=== PATIENT | male | born 1940 | race Caucasian/White ===

== ENCOUNTER 2016-12-02 01:32 | Inpatient (IN) | payer MEDICARE, OTHER ==
[2016-12-02] MEDS ORDERED: Sodium Chloride 0.9% 2.5 ML Syringe FLUSH PRN (01:41)
[2016-12-02] MEDS ORDERED: Sodium Chloride 0.9% 10 ML Syringe FLUSH PRN (01:41)
[2016-12-02] MEDS ORDERED: Ondansetron 4 MG/2 ML SDV IVPUSH ONE (01:41)
[2016-12-02] MEDS ORDERED: Pantoprazole 40 MG Vial IVPUSH ONE (01:41)
[2016-12-02] MEDS ORDERED: Pantoprazole 80 MG in Sodium Chloride 0.9% 100 ML IV SCH ×2 (01:45→04:00)
[2016-12-02] MEDS ORDERED: Sodium Chloride 0.9% 1,000 ML IV SCH (01:45)
--- NOTE | 2016-12-02 01:47 | EDM.PDOC ---
ED HPI GENERAL MEDICAL PROBLEM - General Chief Complaint: Gastrointestinal Problem Stated Complaint: CHEST PAIN, SHAKES, ABDOMINAL PAIN Time Seen by Provider: 12/02/16 01:40 - History of Present Illness INITIAL COMMENTS - FREE TEXT/NARRATIVE: HISTORY AND PHYSICAL: History of present illness: Patient is a 76-year-old white male with extensive past medical history including peptic ulcer disease who comes in with nausea and brown colored emesis tonight he denies melena hematochezia denies bleeding diathesis denies anticoagulant. Review of systems: As per history of present illness and below otherwise all systems reviewed and negative. Past medical history: As per history of present illness and as reviewed below otherwise noncontributory. Surgical history: As per history of present illness and as reviewed below otherwise noncontributory. Social history: No reported history of drug or alcohol abuse. Family history: As per history of present illness and as reviewed below otherwise noncontributory. Physical exam: HEENT: Atraumatic, normocephalic, pupils reactive, negative for conjunctival pallor or scleral icterus, mucous membranes moist, throat clear, neck supple, nontender, trachea midline. Lungs: Clear to auscultation, breath sounds equal bilaterally, chest nontender. Heart: S1S2, regular, negative for clicks, rubs, or JVD. Abdomen: Laparotomy scar noted Soft, protuberant, nontender. Negative for masses or hepatosplenomegaly. Negative for costovertebral tenderness. Pelvis: Stable nontender. Genitourinary: Deferred. Rectal: Deferred. Extremities: Atraumatic, negative for cords or calf pain. Neurovascular unremarkable. Neuro: Awake, alert, oriented. Cranial nerves II through XII unremarkable. Cerebellum unremarkable. Motor and sensory unremarkable throughout. Exam nonfocal. Diagnostics: CBC CMP troponin PT/INR chest x-ray EKG type and screen Therapeutics: IV O2 monitor Protonix 80 mg bolus followed by 8 mg an hour drip Impression: #1 hyperemesis #2 history of ulcer disease #3 rule out GI bleed Definitive disposition and diagnosis as appropriate pending reevaluation and review of above. chest Pain Score (Numeric/FACES): 1 - Related Data Allergies Allergy/AdvReac Type Severity Reaction Status Date / Time No Known Allergies Allergy Verified 12/02/16 01:38 Home Meds: Home Meds . [No Known Home Meds] 12/02/16 [History] ED ROS GENERAL - Review of Systems Review Of Systems: ROS reveals no pertinent complaints other than HPI. ED EXAM, GENERAL - Physical Exam Exam: See Below (Dictation) Course - Vital Signs Last Recorded V/S: Last Vital Signs Temp 36.6 C 12/02/16 01:32 Pulse 91 12/02/16 01:32 Resp 20 12/02/16 01:32 BP 182/88 H 12/02/16 01:32 Pulse Ox 98 12/02/16 02:56 - Orders/Labs/Meds Orders: Active Orders 24 hr Category Date Time Status Cardiac Monitoring [RC] . DIRECTED Care 12/02/16 01:40 Active EKG Documentation Completion [RC] STAT Care 12/02/16 01:40 Active Oxygen Therapy, ED [RC] ASDIRECTED Care 12/02/16 01:40 Active Pulse Oximetry [RC] ASDIRECTED Care 12/02/16 01:40 Active Chest 1V Frontal [CR] Stat Exams 12/02/16 01:41 Taken CULTURE BLOOD [BC] Stat Lab 12/02/16 02:07 Received CULTURE BLOOD [BC] Stat Lab 12/02/16 02:13 Received TYPE AND SCREEN [BBK] Stat Lab 12/02/16 02:07 Received UA W/MICROSCOPIC [URIN] Stat Lab 12/02/16 01:41 Uncollected Pantoprazole [ProTONIX IV] 80 mg Med 12/02/16 01:45 Active Sodium Chloride 0.9% [Normal Saline] 100 ml IV .Continuous Sodium Chloride 0.9% [Normal Saline] 1,000 ml Med 12/02/16 01:45 Active IV STAT Sodium Chloride 0.9% [Saline Flush] Med 12/02/16 01:41 Active 10 ml FLUSH ASDIRECTED PRN Sodium Chloride 0.9% [Saline Flush] Med 12/02/16 01:41 Active 2.5 ml FLUSH ASDIRECTED PRN Blood Culture x2 Reflex Set [OM.PC] Stat Oth 12/02/16 01:41 Ordered Saline Lock Insert [OM.PC] Stat Oth 12/02/16 01:40 Ordered Medication Orders Pantoprazole Sodium 80 mg/ (Sodium Chloride) 100 mls @ 10 mls/hr IV .Continuous ANITA Last Admin: 12/02/16 02:41 Dose: 10 mls/hr Sodium Chloride (Normal Saline) 1,000 mls @ 125 mls/hr IV STAT ANITA Last Admin: 12/02/16 02:13 Dose: 125 mls/hr Sodium Chloride (Saline Flush) 10 ml FLUSH ASDIRECTED PRN PRN Reason: Keep Vein Open Sodium Chloride (Saline Flush) 2.5 ml FLUSH ASDIRECTED PRN PRN Reason: Keep Vein Open Labs: Laboratory Tests 12/02/16 12/02/16 12/02/16 Range/Units 02:07 02:07 02:07 WBC 8.28 (4.0-11.0) K/uL RBC 5.46 (4.50-5.90) M/uL Hgb 17.5 H (13.0-17.0) g/dL Hct 50.5 H (38.0-50.0) % MCV 92.5 (80.0-98.0) fL MCH 32.1 H (27.0-32.0) pg MCHC 34.7 (31.0-37.0) g/dL RDW Std Deviation 48.5 (28.0-62.0) fl RDW Coeff of Clotilde 14 (11.0-15.0) % Plt Count 227 (150-400) K/uL MPV 9.10 (7.40-12.00) fL Neut % (Auto) 69.7 (48.0-80.0) % Lymph % (Auto) 20.9 (16.0-40.0) % [place] % (Auto) 9.2 (0.0-15.0) % Eos % (Auto) 0.0 (0.0-7.0) % Baso % (Auto) 0.2 (0.0-1.5) % Neut # (Auto) 5.8 H (1.4-5.7) K/uL Lymph # (Auto) 1.7 (0.6-2.4) K/uL [place] # (Auto) 0.8 (0.0-0.8) K/uL Eos # (Auto) 0.0 (0.0-0.7) K/uL Baso # (Auto) 0.0 (0.0-0.1) K/uL Nucleated RBC % 0.0 /100WBC Nucleated RBCs # 0 K/uL INR 1.10 (0.86-1.11) Sodium 135 L (136-146) mmol/L Potassium 4.1 (3.5-5.1) mmol/L Chloride 100 (98-110) mmol/L Carbon Dioxide 23 (21-31) mmol/L BUN 12 (6.0-23.0) mg/dL Creatinine 0.8 (0.6-1.5) mg/dL Est Cr Clr Drug Dosing TNP Estimated GFR (MDRD) > 60.0 ml/min Glucose 131 H (60-110) mg/dL Calcium 9.9 (8.8-10.8) mg/dL Total Bilirubin 1.7 H (0.1-1.5) mg/dL AST 25 (5-40) IU/L ALT 16 (8-54) IU/L Alkaline Phosphatase 50 (40-150) Troponin I (0.0-0.29) NG/ML Total Protein 7.6 (6.0-8.0) g/dL Albumin 4.3 (3.4-4.8) g/dL Globulin 3.3 (2.0-3.5) g/dL Albumin/Globulin Ratio 1.3 (1.3-2.8) Amylase 72 (10-90) U/L Ethyl Alcohol < 10.0 mg/dL 12/02/16 Range/Units 02:07 WBC (4.0-11.0) K/uL RBC (4.50-5.90) M/uL Hgb (13.0-17.0) g/dL Hct (38.0-50.0) % MCV (80.0-98.0) fL MCH (27.0-32.0) pg MCHC (31.0-37.0) g/dL RDW Std Deviation (28.0-62.0) fl RDW Coeff of Clotilde (11.0-15.0) % Plt Count (150-400) K/uL MPV (7.40-12.00) fL Neut % (Auto) (48.0-80.0) % Lymph % (Auto) (16.0-40.0) % [place] % (Auto) (0.0-15.0) % Eos % (Auto) (0.0-7.0) % Baso % (Auto) (0.0-1.5) % Neut # (Auto) (1.4-5.7) K/uL Lymph # (Auto) (0.6-2.4) K/uL [place] # (Auto) (0.0-0.8) K/uL Eos # (Auto) (0.0-0.7) K/uL Baso # (Auto) (0.0-0.1) K/uL Nucleated RBC % /100WBC Nucleated RBCs # K/uL INR (0.86-1.11) Sodium (136-146) mmol/L Potassium (3.5-5.1) mmol/L Chloride (98-110) mmol/L Carbon Dioxide (21-31) mmol/L BUN (6.0-23.0) mg/dL Creatinine (0.6-1.5) mg/dL Est Cr Clr Drug Dosing Estimated GFR (MDRD) ml/min Glucose (60-110) mg/dL Calcium (8.8-10.8) mg/dL Total Bilirubin (0.1-1.5) mg/dL AST (5-40) IU/L ALT (8-54) IU/L Alkaline Phosphatase (40-150) Troponin I < 0.10 (0.0-0.29) NG/ML Total Protein (6.0-8.0) g/dL Albumin (3.4-4.8) g/dL Globulin (2.0-3.5) g/dL Albumin/Globulin Ratio (1.3-2.8) Amylase (10-90) U/L Ethyl Alcohol mg/dL Meds: Medications Generic Name Dose Route Start Last Admin Trade Name Freq PRN Reason Stop Dose Admin Pantoprazole Sodium 80 mg/ 100 mls @ 10 mls/hr 12/02/16 01:45 12/02/16 02:41 Sodium Chloride IV 10 mls/hr .Continuous ANITA Administration Sodium Chloride 1,000 mls @ 125 mls/hr 12/02/16 01:45 12/02/16 02:13 Normal Saline IV 125 mls/hr STAT ANITA Administration Sodium Chloride 10 ml 12/02/16 01:41 Saline Flush FLUSH ASDIRECTED PRN Keep Vein Open Sodium Chloride 2.5 ml 12/02/16 01:41 Saline Flush FLUSH ASDIRECTED PRN Keep Vein Open Discontinued Medications Generic Name Dose Route Start Last Admin Trade Name Iggyq PRN Reason Stop Dose Admin Ondansetron HCl 4 mg 12/02/16 01:41 12/02/16 02:13 Zofran IVPUSH 12/02/16 01:42 4 mg ONETIME ONE Administration Pantoprazole Sodium 80 mg 12/02/16 01:41 12/02/16 02:13 Protonix Iv IVPUSH 12/02/16 01:42 80 mg .BOLUS ONE Administration Departure - Departure Time of Disposition: 01:46 Disposition: Refer to Observation Condition: Good Clinical Impression: Hyperemesis, GI bleed - Discharge Information Referrals: PCP,None [Primary Care Provider] - Forms: ED Department Discharge - My Orders Last 24 Hours: My Active Orders 12/02/16 01:40 Cardiac Monitoring [RC] . DIRECTED EKG Documentation Completion [RC] STAT Oxygen Therapy, ED [RC] ASDIRECTED Pulse Oximetry [RC] ASDIRECTED Saline Lock Insert [OM.PC] Stat 12/02/16 01:41 Chest 1V Frontal [CR] Stat UA W/MICROSCOPIC [URIN] Stat Sodium Chloride 0.9% [Saline Flush] 10 ml FLUSH ASDIRECTED PRN Sodium Chloride 0.9% [Saline Flush] 2.5 ml FLUSH ASDIRECTED PRN Blood Culture x2 Reflex Set [OM.PC] Stat 12/02/16 01:45 Pantoprazole [ProTONIX IV] 80 mg Sodium Chloride 0.9% [Normal Saline] 100 ml IV .Continuous Sodium Chloride 0.9% [Normal Saline] 1,000 ml IV STAT 12/02/16 02:07 CULTURE BLOOD [BC] Stat TYPE AND SCREEN [BBK] Stat 12/02/16 02:13 CULTURE BLOOD [BC] Stat - Assessment/Plan Last 24 Hours: My Active Orders 12/02/16 01:40 Cardiac Monitoring [RC] . DIRECTED EKG Documentation Completion [RC] STAT Oxygen Therapy, ED [RC] ASDIRECTED Pulse Oximetry [RC] ASDIRECTED Saline Lock Insert [OM.PC] Stat 12/02/16 01:41 Chest 1V Frontal [CR] Stat UA W/MICROSCOPIC [URIN] Stat Sodium Chloride 0.9% [Saline Flush] 10 ml FLUSH ASDIRECTED PRN Sodium Chloride 0.9% [Saline Flush] 2.5 ml FLUSH ASDIRECTED PRN Blood Culture x2 Reflex Set [OM.PC] Stat 12/02/16 01:45 Pantoprazole [ProTONIX IV] 80 mg Sodium Chloride 0.9% [Normal Saline] 100 ml IV .Continuous Sodium Chloride 0.9% [Normal Saline] 1,000 ml IV STAT 12/02/16 02:07 CULTURE BLOOD [BC] Stat TYPE AND SCREEN [BBK] Stat 12/02/16 02:13 CULTURE BLOOD [BC] Stat
[2016-12-02 02:36] LABS: CHLORIDE,CL 100 mmol/L (98-110); SODIUM,NA 135 mmol/L (136-146)
[2016-12-02] MEDS ORDERED: Morphine 4 MG/ML Syringe IVPUSH PRN (03:47)
[2016-12-02 05:57] LABS: CHLORIDE,CL 101 mmol/L (98-110); SODIUM,NA 135 mmol/L (136-146)
[2016-12-02] MEDS: Ondansetron 4 MG/2 ML SDV IVPUSH PRN ×3 (06:10→14:06)
[2016-12-02] MEDS: Sodium Chloride 0.9% 1,000 ML IV SCH ×3 (09:26→23:53)
--- NOTE | 2016-12-02 12:22 | PCM.HP ---
H&P History of Present Illness - General Date of Service: 12/02/16 Admit Problem/Dx: Admission Diagnosis/Problem Admission Diagnosis/Problem Vomiting Source of Information: Patient, Family, Provider, RN - History of Present Illness Initial Comments - Free Text/Narative: He developed persistent vomiting the past 3 days. HE feels bloated. He states that he has not had a BM x three days. He has had small amounts of flatus up until today. chest Pain Score (Numeric/FACES): 5 - Related Data Allergies/Adverse Reactions: Allergies Allergy/AdvReac Type Severity Reaction Status Date / Time No Known Allergies Allergy Verified 12/02/16 01:38 Home Medications: Home Meds . [No Known Home Meds] 12/02/16 [History] Past Medical History - Past Health History Medical/Surgical History: Denies Medical/Surgical History Cardiovascular History: Denies: Afib, Angina, Bypass, CAD, Heart Failure, High Cholesterol, RI Respiratory History: Denies: COPD, Interstitial Lung Disease Gastrointestinal History: Reports: GI Bleed, PUD Other Genitourinary History: history of prostate cancer Neurological History: Denies: Alzheimers Disease, Brain Injury, CVA, MS Psychiatric History: Denies: Alzheimers Disease, Dementia Endocrine/Metabolic History: Denies: Gustavo's Disease, Diabetes, Type I, Diabetes, Type II Immunologic History: Denies: HIV, Solid Organ Transplant Oncologic (Cancer) History: Reports: Prostate, Renal Other Oncologic History: Prostate cancer non-treated - Infectious Disease History Infectious Disease History: Reports: Chicken Pox - Past Surgical History GI Surgical History: Reports: Other (See Below) Other GI Surgeries/Procedures: explor lap Other Oncologic Surgeries/Procedures: Partial removal of kidney Social & Family History - Family History Family Medical History: Noncontributory Cardiac: Reports: RI, Other (See Below) Other Cardiac Family History: Father from heart attack. - Tobacco Use Smoking Status *Q: Former Smoker Used Tobacco, but Quit: Yes Month Tobacco Last Used: unknown Second Hand Smoke Exposure: No - Caffeine Use Caffeine Use: Reports: Coffee - Alcohol Use Number of Drinks Per Day: 4 Alcohol Use Comment: he drinks 4 beers per day. - Recreational Drug Use Recreational Drug Use: No H&P Review of Systems - Review of Systems: Review Of Systems: See Below General: Denies: Fever, Chills Pulmonary: Denies: Shortness of Breath, Cough, Sputum Cardiovascular: Denies: Chest Pain, Edema Gastrointestinal: Reports: Abdominal Pain (minimal left sided pain), Flatus, Vomiting (brown emesis). Denies: Black Stool, Bloody Stool, Diarrhea, Hematemesis, Hematochezia, Melena, Stool Incontinence Genitourinary: Denies: Dysuria, Burning Skin: Denies: Jaundice Neurological: Denies: Confusion (he has a large left inguinal hernia) Exam - Exam Exam: See Below - Vital Signs Vital Signs: Last Vital Signs Temp 98.8 F 12/02/16 08:00 Pulse 85 12/02/16 08:00 Resp 20 12/02/16 08:00 BP 182/88 H 12/02/16 08:00 Pulse Ox 94 L 12/02/16 08:00 Weight: 65.7 kg - Exam General: Alert, Oriented, Cooperative HEENT: Conjunctiva Clear, EOMI Neck: Supple, Trachea Midline Lungs: Clear to Auscultation, Normal Respiratory Effort. No: Crackles, Rhonchi Cardiovascular: Regular Rate, Regular Rhythm GI/Abdominal Exam: Distended, Other (no definite focal tenderness; high pitched bowel sounds). No: No Distention, Rebound, Tender (Male) Exam: Other (large left inguinal hernia extending to the scrotum ; no incarcerated; not tenderness) Rectal (Males) Exam: Deferred Extremities: No: Pedal Edema Neurological: Normal Speech. No: Cranial Nerves Intact Neuro Extensive - Mental Status: Normal Mood/Affect Neuro Extensive - Motor, Sensory, Reflexes: CN II-XII Intact Psychiatric: Alert, Normal Mood. No: Depressed - Patient Data Lab Results Last 24 hrs: Laboratory Results - last 24 hr 12/02/16 12/02/16 Range/Units 05:20 05:20 WBC 9.06 (4.0-11.0) K/uL RBC 5.18 (4.50-5.90) M/uL Hgb 16.5 (13.0-17.0) g/dL Hct 48.1 (38.0-50.0) % MCV 92.9 (80.0-98.0) fL MCH 31.9 (27.0-32.0) pg MCHC 34.3 (31.0-37.0) g/dL RDW Std Deviation 48.5 (28.0-62.0) fl RDW Coeff of Clotilde 14 (11.0-15.0) % Plt Count 230 (150-400) K/uL MPV 9.20 (7.40-12.00) fL Neut % (Auto) 77.8 (48.0-80.0) % Lymph % (Auto) 14.2 L (16.0-40.0) % [place] % (Auto) 7.9 (0.0-15.0) % Eos % (Auto) 0.0 (0.0-7.0) % Baso % (Auto) 0.1 (0.0-1.5) % Neut # (Auto) 7.0 H (1.4-5.7) K/uL Lymph # (Auto) 1.3 (0.6-2.4) K/uL [place] # (Auto) 0.7 (0.0-0.8) K/uL Eos # (Auto) 0.0 (0.0-0.7) K/uL Baso # (Auto) 0.0 (0.0-0.1) K/uL Nucleated RBC % 0.0 /100WBC Nucleated RBCs # 0 K/uL Sodium 135 L (136-146) mmol/L Potassium 4.3 (3.5-5.1) mmol/L Chloride 101 (98-110) mmol/L Carbon Dioxide 25 (21-31) mmol/L BUN 12 (6.0-23.0) mg/dL Creatinine 0.8 (0.6-1.5) mg/dL Est Cr Clr Drug Dosing 73.00 mL/min Estimated GFR (MDRD) > 60.0 ml/min Glucose 121 H (60-110) mg/dL Calcium 9.4 (8.8-10.8) mg/dL Result Diagrams: 12/02/16 05:20 12/02/16 05:20 *Q Meaningful Use (ADM) - VTE *Q VTE Criteria *Q: - Stroke *Q Stroke Criteria *Q: - AMI *Q AMI Criteria *Q: - Problem List (1) Abdominal distention SNOMED Code(s): 76521503 ICD Code: R14.0 - ABDOMINAL DISTENSION (GASEOUS) Status: Acute Current Visit: Yes (2) History of kidney cancer SNOMED Code(s): 378690537, 282351224 ICD Code: Z85.528 - PERSONAL HISTORY OF OTHER MALIGNANT NEOPLASM OF KIDNEY Status: Acute Current Visit: Yes Problem List Initiated/Reviewed/Updated: Yes Orders Last 24hrs: Active Orders 24 hr Category Date Time Status Telemetry Monitoring [Cardiac Monitoring] [RC] . Care 12/02/16 03:30 Active DIRECTED Regular Diet [DIET] Diet 12/02/16 Breakfast Active Morphine Med 12/02/16 03:47 Active 4 mg IVPUSH Q2H PRN Ondansetron [Zofran] Med 12/02/16 03:47 Active 4 mg IVPUSH Q4H PRN Pantoprazole [ProTONIX IV] 80 mg Med 12/02/16 12:30 Active Sodium Chloride 0.9% [Normal Saline] 100 ml IV Q10H Sodium Chloride 0.9% [Normal Saline] 1,000 ml Med 12/02/16 04:00 Active IV ASDIRECTED Medication Orders Sodium Chloride (Normal Saline) 1,000 mls @ 125 mls/hr IV STAT ANITA Last Admin: 12/02/16 02:13 Dose: 125 mls/hr Sodium Chloride (Normal Saline) 1,000 mls @ 150 mls/hr IV ASDIRECTED ANITA Last Admin: 12/02/16 09:26 Dose: 150 mls/hr Pantoprazole Sodium 80 mg/ (Sodium Chloride) 100 mls @ 10 mls/hr IV Q10H ANITA Morphine Sulfate (Morphine) 4 mg IVPUSH Q2H PRN PRN Reason: Pain Last Admin: 12/02/16 05:50 Dose: 4 mg Ondansetron HCl (Zofran) 4 mg IVPUSH Q4H PRN PRN Reason: Nausea/Vomiting Last Admin: 12/02/16 09:41 Dose: 4 mg Admin: 12/02/16 06:10 Dose: 4 mg Sodium Chloride (Saline Flush) 10 ml FLUSH ASDIRECTED PRN PRN Reason: Keep Vein Open Sodium Chloride (Saline Flush) 2.5 ml FLUSH ASDIRECTED PRN PRN Reason: Keep Vein Open Assessment/Plan Comment:: ct abdomen pelvis suspect bowel obstruction Clayton Blandon MD
[2016-12-02] MEDS: Pantoprazole 80 MG in Sodium Chloride 0.9% 100 ML IV SCH (13:55)
[2016-12-02] MEDS ORDERED: Iopamidol 755 Mg/ML 100 ML Bottle IVPUSH STA (15:40)
--- NOTE | 2016-12-02 16:46 | PCM.SN ---
- Free Text/Narrative Note: I reviewed CT with patient and family. He is feeling better and starting to pass flatus. His abdomen now is soft. Will not place NG tube as planned. Will advance to clear liquid diet. Clayton Blandon MD
[2016-12-02] MEDS ORDERED: Ondansetron 4 MG/2 ML SDV IVPUSH PRN (21:41)
[2016-12-02] MEDS: Enalaprilat 1.25 MG/ML SDV IVPUSH SCH (21:42)
[2016-12-03] MEDS: Pantoprazole 80 MG in Sodium Chloride 0.9% 100 ML IV SCH ×3 (00:36→20:06)
[2016-12-03] MEDS: Enalaprilat 1.25 MG/ML SDV IVPUSH SCH ×3 (02:45→14:25)
[2016-12-03 06:33] LABS: CHLORIDE,CL 103 mmol/L (98-110); SODIUM,NA 135 mmol/L (136-146)
[2016-12-03] MEDS: Sodium Chloride 0.9% 1,000 ML IV SCH (08:05)
[2016-12-03 17:29] VITALS: BP 138/67
--- NOTE | 2016-12-03 19:33 | PCM.DCSUM1 ---
Discharge Summary - Hospital Course Brief History: He was admitted with recalcitrant emesis - Discharge Data Discharge Date: 12/03/16 Discharge Disposition: Home, Self-Care 01 Condition: Fair - Discharge Diagnosis/Problem(s) (1) Abdominal distention SNOMED Code(s): 16748432 ICD Code: R14.0 - ABDOMINAL DISTENSION (GASEOUS) Status: Acute Current Visit: Yes (2) History of kidney cancer SNOMED Code(s): 733575010, 544853168 ICD Code: Z85.528 - PERSONAL HISTORY OF OTHER MALIGNANT NEOPLASM OF KIDNEY Status: Acute Current Visit: Yes - Patient Summary/Data Hospital Course: He was initially put on bowel rest. CT scan showed decompressed colon. He had marked abdominal distention. It was thought that he likely had a partial small bowel obstruction related to adhesions. he was given bowel rest and when he started passing significant flatus with subsequent decrease in abdominal distention, he was given clear liquids. His diet was advanced and he is tolerating regular diet at discharge. His abdominal symptoms have completely resolved at discharge. IMpression: partial small bowel obstruction ; symptoms resolved with bowel rest discharge home I advised small meals and follow up promptly should symptoms recur. Clayton Blandon MD - Discharge Plan Home Medications: Home Meds . [No Known Home Meds] 12/02/16 [History] Patient Handouts: Small Bowel Obstruction, [id number] Referrals: Vega Wilks MD [Physician] - (Please call the clinic ([phone]) on Sunday to set up a follow-up appointment with Dr. Wilks.) - Patient Data Vitals - Most Recent: Last Vital Signs Temp 97.9 F 12/03/16 16:00 Pulse 60 12/03/16 16:00 Resp 14 12/03/16 16:00 BP 138/67 12/03/16 16:00 Pulse Ox 94 L 12/03/16 16:00 Weight - Most Recent: 65.7 kg I&O - Last 24 hours: Intake & Output 12/03/16 12/03/16 12/03/16 06:59 14:59 22:59 Intake Total 1370 1100 540 Output Total 880 400 Balance 490 1100 140 Lab Results - Last 24 hrs: Laboratory Results - last 24 hr 12/03/16 12/03/16 Range/Units 04:58 04:58 WBC 7.72 (4.0-11.0) K/uL RBC 4.72 (4.50-5.90) M/uL Hgb 15.1 (13.0-17.0) g/dL Hct 44.2 (38.0-50.0) % MCV 93.6 (80.0-98.0) fL MCH 32.0 (27.0-32.0) pg MCHC 34.2 (31.0-37.0) g/dL RDW Std Deviation 49.7 (28.0-62.0) fl RDW Coeff of Clotilde 14 (11.0-15.0) % Plt Count 229 (150-400) K/uL MPV 9.30 (7.40-12.00) fL Neut % (Auto) 64.6 (48.0-80.0) % Lymph % (Auto) 23.8 (16.0-40.0) % [place] % (Auto) 10.9 (0.0-15.0) % Eos % (Auto) 0.4 (0.0-7.0) % Baso % (Auto) 0.3 (0.0-1.5) % Neut # (Auto) 5.0 (1.4-5.7) K/uL Lymph # (Auto) 1.8 (0.6-2.4) K/uL [place] # (Auto) 0.8 (0.0-0.8) K/uL Eos # (Auto) 0.0 (0.0-0.7) K/uL Baso # (Auto) 0.0 (0.0-0.1) K/uL Nucleated RBC % 0.0 /100WBC Nucleated RBCs # 0 K/uL Sodium 135 L (136-146) mmol/L Potassium 3.4 L (3.5-5.1) mmol/L Chloride 103 (98-110) mmol/L Carbon Dioxide 23 (21-31) mmol/L BUN 11 (6.0-23.0) mg/dL Creatinine 0.7 (0.6-1.5) mg/dL Est Cr Clr Drug Dosing 83.43 mL/min Estimated GFR (MDRD) > 60.0 ml/min Glucose 86 (60-110) mg/dL Calcium 8.7 L (8.8-10.8) mg/dL Magnesium 1.4 L (1.5-2.3) mEq/L Total Bilirubin 1.9 H (0.1-1.5) mg/dL AST 20 (5-40) IU/L ALT 14 (8-54) IU/L Alkaline Phosphatase 38 L (40-150) Total Protein 5.9 L (6.0-8.0) g/dL Albumin 3.5 (3.4-4.8) g/dL Globulin 2.4 (2.0-3.5) g/dL Albumin/Globulin Ratio 1.5 (1.3-2.8) Amylase 61 (10-90) U/L Lipase 26 (7-80) U/L Med Orders - Current: Current Medications Enalaprilat (Vasotec Iv) 0.625 mg IVPUSH Q6H [facility] Last Admin: 12/03/16 14:25 Dose: 0.625 mg Sodium Chloride (Normal Saline) 1,000 mls @ 125 mls/hr IV ASDIRECTED ANITA Last Admin: 12/03/16 08:05 Dose: 125 mls/hr Pantoprazole Sodium 80 mg/ (Sodium Chloride) 100 mls @ 10 mls/hr IV Q10H ANITA Last Admin: 12/03/16 08:10 Dose: 10 mls/hr Morphine Sulfate (Morphine) 4 mg IVPUSH Q2H PRN PRN Reason: Pain Last Admin: 12/02/16 05:50 Dose: 4 mg Ondansetron HCl (Zofran) 4 mg IVPUSH Q4H PRN PRN Reason: Nausea/Vomiting Sodium Chloride (Saline Flush) 10 ml FLUSH ASDIRECTED PRN PRN Reason: Keep Vein Open Sodium Chloride (Saline Flush) 2.5 ml FLUSH ASDIRECTED PRN PRN Reason: Keep Vein Open Discontinued Medications Pantoprazole Sodium 80 mg/ (Sodium Chloride) 100 mls @ 10 mls/hr IV .Continuous ANITA Last Admin: 12/02/16 02:41 Dose: 10 mls/hr Sodium Chloride (Normal Saline) 1,000 mls @ 125 mls/hr IV STAT [facility] Last Admin: 12/02/16 02:13 Dose: 125 mls/hr Pantoprazole Sodium 80 mg/ (Sodium Chloride) 100 mls @ 10 mls/hr IV Q10H ANITA Last Admin: 12/02/16 05:58 Dose: Not Given Iopamidol (Isovue-370 (76%)) 85 ml IVPUSH ONETIME STA Stop: 12/02/16 15:41 Last Admin: 12/02/16 15:40 Dose: 85 ml Ondansetron HCl (Zofran) 4 mg IVPUSH ONETIME ONE Stop: 12/02/16 01:42 Last Admin: 12/02/16 02:13 Dose: 4 mg Ondansetron HCl (Zofran) 4 mg IVPUSH Q4H PRN PRN Reason: Nausea/Vomiting Last Admin: 12/02/16 14:06 Dose: 4 mg Pantoprazole Sodium (Protonix Iv) 80 mg IVPUSH .BOLUS ONE Stop: 12/02/16 01:42 Last Admin: 12/02/16 02:13 Dose: 80 mg *Q Meaningful Use (DIS) - VTE *Q VTE Criteria *Q: - Stroke *Q Stroke Criteria *Q: - AMI *Q AMI Criteria *Q:
--- NOTE | 2016-12-04 10:31 | CR ---
EXAM DATE: 12/02/16 PATIENT'S AGE: 76 Patient: DAVID VILLAREAL Facility: [place], [place] Site . Site : [id number] Study: XRay Chest [id number]/16/2017 2:32:27 AM Ordering Physician: Katelynn Pagan Final Report: INDICATIONS: Pain. Shortness of breath. TECHNIQUE: Chest 1 view. COMPARISON: Chest radiograph December 28, 2012. FINDINGS: No pneumothorax, pleural effusion or airspace consolidation. Cardiac and mediastinal contours are within normal limits. Upper abdomen and osseous structures as imaged show no acute abnormality. IMPRESSION: No acute cardiopulmonary disease. Dictated by Artis Martinez MD @ 12/02/2016 2:46:15 AM Dictated by: Artis Martinez MD @ 12/02/2016 02:46:25 (Electronic Signature) Report Signed by Proxy. [facility]
--- NOTE | 2016-12-04 10:32 | CT ---
EXAM DATE: 12/02/16 PATIENT'S AGE: 76 Patient: DAVID VILLAREAL Facility: [place], [place] Site . Site : 1940 Study: CT Abdomen/Pelvis W/ and W/O Cont [id number]/16/2017 3:34:36 PM Ordering Physician: Jamia Arnold Final Report: INDICATION: Suspected obstruction. History of kidney and prostate cancer. Technique: Volumetric CT acquisition of the abdomen and pelvis following the administration of oral contrast and the foreign after the administration of 85 mL [id number] intravenous contrast. Multiplanar reconstruction. Comparison. Comparison: CT abdomen and pelvis on 08/09/2011. Findings: The lung bases are clear. The liver and spleen are normal in size and without focal abnormality. No dilatation of the biliary system. The gallbladder is present. Pancreas and adrenal glands are normal. Both kidneys are functioning and display normal enhancement. No hydronephrosis. No urinary tract stones. Ureters normal in course and caliber. Resection of previously noted mass arising from the lower pole of the left kidney. No new renal masses are focal parenchymal abnormalities. Abdominal aorta normal in caliber and displays changes of atherosclerosis. No para-aortic or retrocrural lymphadenopathy. Small bowel loops at the upper limit of normal in diameter. The colon is decompressed. Examination is significant for a left inguinal hernia containing loops of bowel and fat. The bowel within the hernia sac is not compromised. The hernia extends into the inguinal canal directed towards the left hemiscrotum. There are no inflammatory changes involving the bowel. The urinary bladder is mildly distended . Small diverticulum arising from the left posterior margin of the bladder is stable since prior study. Seminal vesicles bilaterally symmetrical. Fat planes surrounding the bladder and rectum are maintained. No free fluid in the abdomen and pelvis. No lytic or blastic lesions in the lumbar spine or bony pelvic ring. Impression : 1. A left inguinal hernia extends into the inguinal canal toward the left hemiscrotum. The hernia contains fat and bowel. The bowel within the hernia is not compromised. Small bowel loops proximal to the hernia at the upper limit of normal in diameter. 2. Mild distention of the urinary bladder. Stable bladder diverticulum. 3. Resection of left renal cell carcinoma. No recurrent mass. No evidence of metastatic disease. Please note that all CT scans at this facility use dose modulation, iterative reconstruction, and/or weight-based dosing when appropriate to reduce radiation dose to as low as reasonably achievable. Dictated by Irvin Arechiga MD @ Dec 02 2016 3:40PM (Electronic Signature) Report Signed by Proxy. MTDD
== END 2016-12-03 19:56 | disposition home or self-care (01) | DRG 390 ==
LOC: MW.ED 01:32 → MW.MS 03:01 → OBSVTOIN 03:01 → INTOOBSV 03:01 → OBSVTOIN 12:32 → MW.MS 19:44
PROVIDERS: ADMIT Family Medicine; ATTEND Family Medicine
DX: K92.2 Gastrointestinal hemorrhage, unspecified (principal); R11.10 Vomiting, unspecified; Z87.11 Personal history of peptic ulcer disease; K56.60 Unspecified intestinal obstruction; R14.0 Abdominal distension (gaseous); Z85.528 Personal history of other malignant neoplasm of kidney; Z87.891 Personal history of nicotine dependence
CPT/HCPCS: 36415; 71010; 80048; 80053; 82150; 84484; 85025 ×2; 85610; 86850; 86900; 86901; 87040 ×2; 93005; 96361; 96365; 96375; 96376; 99285; C9113 ×2; G0480; J2270; J2405 ×3; J7030; J7040 ×2; 74178; 74178-26; 81001; 83690; 83735; 87077; 87186; 99283; Q9967

== ENCOUNTER 2019-01-21 15:12 | Emergency (ER) | payer MEDICARE ==
[2019-01-21] MEDS ORDERED: Sodium Chloride 0.9% 2.5 ML Syringe FLUSH PRN (15:18)
[2019-01-21] MEDS ORDERED: Sodium Chloride 0.9% 10 ML Syringe FLUSH PRN (15:18)
[2019-01-21] MEDS ORDERED: Ondansetron 4 MG/2 ML SDV IVPUSH ONE ×2 (15:18→15:57)
[2019-01-21] MEDS ORDERED: Sodium Chloride 0.9% 1,000 ML IV ONE (15:18)
[2019-01-21] MEDS ORDERED: Morphine 2 MG/ML Syringe IVPUSH ONE ×2 (15:29→16:49)
[2019-01-21] MEDS ORDERED: Ondansetron 4 MG/2 ML SDV ONE (15:58)
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
--- NOTE | 2019-01-21 16:27 | CR ---
EXAM DATE: 01/21/19 PATIENT'S AGE: 78 Chest: AP view of the chest was obtained. Comparison: Prior chest x-ray of 12/02/16. Heart size and mediastinum are normal. Nodule is noted within the right lung base most likely due to nipple density. Lungs otherwise are clear. No acute parenchymal change is definitely appreciated. Bony structures are grossly intact. Old healed right lower rib fracture is noted. Impression: 1. Findings as noted above. 2. Nothing acute is definitely seen. Diagnostic code #2 MTDD
[2019-01-21 16:31] LABS: CARBON DIOXIDE,CO2 22.4 mmol/L (21.0-32.0); POTASSIUM,K 3.7 mmol/L (3.5-5.1)
--- NOTE | 2019-01-21 16:33 | CT ---
EXAM DATE: 01/21/19 PATIENT'S AGE: 78 CT abdomen and pelvis Technique: Multiple axial sections were obtained from above the dome of the diaphragm inferiorly through the pubic symphysis. Intravenous and oral contrast not utilized. Comparison: Prior CT abdomen and pelvis exam of 12/02/16. Findings: Dilated fluid-filled small bowel loops are seen. This continues into a left inguinal hernia with more distal small bowel loops appearing decompressed. Visualized lung bases show nothing acute. Noncontrast appearance of the liver shows no focal abnormality. Spleen appears within normal limits. Small hiatal hernia is noted. Adrenal glands show no nodule. Kidneys show no abnormal calcifications. No ureteral dilatation is seen. Pancreas is atrophied. Aorta shows diffuse atherosclerotic calcification without aneurysm. Atherosclerotic calcification continues into the iliac vessels. No retroperitoneal adenopathy is seen. No mesenteric abnormalities are seen. No pelvic mass or adenopathy is seen. Impression: 1. Dilated fluid-filled small bowel which extends into a left inguinal hernia with more distal small bowel loops showing no dilatation. Left inguinal hernia likely causing a small bowel obstruction. 2. Other findings as noted above which are nonacute. Diagnostic code #5 Report Signed by Proxy. [facility]
[2019-01-21] MEDS ORDERED: Benzocaine 20% Topical Spray UD MUCMEM ONE ×2 (16:47→16:50)
[2019-01-21] MEDS ORDERED: LORazepam 2 MG/ML SDV IVPUSH ONE (16:49)
[2019-01-21] MEDS ORDERED: Piperacillin/Tazobactam 3.375 GM in Sodium Chloride 0.9% 50 ML IV ONE (16:58)
[2019-01-21 17:00] VITALS: BP 136/77; PULSE 88
--- NOTE | 2019-01-21 17:38 | CR ---
Indication: Post NG tube placement. Technique: An AP view of the abdomen was obtained. Comparison: None Findings: The feeding tube is identified with the tip in the body of the stomach. The bowel gas pattern is nonobstructive. Impression: NG tube identified with the tip in the body of the stomach Dictated by Noni Marquis MD @ Jan 21 2019 5:34PM Signed by Dr. Noni Marquis @ Jan 21 2019 5:35PM
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
== END 2019-01-21 18:00 ==
LOC: MW.ED 15:12
DX: K56.609 Unspecified intestinal obstruction, unspecified as to partial versus complete obstruction (principal); K40.30 Unilateral inguinal hernia, with obstruction, without gangrene, not specified as recurrent; R14.0 Abdominal distension (gaseous); Z85.46 Personal history of malignant neoplasm of prostate; Z85.528 Personal history of other malignant neoplasm of kidney
CPT/HCPCS: 71045; 74018; 74176; 80053; 83605; 83690; 85025; 96361; 96365; 96375; 96376; 99285; A9270; J2060; J2270; J2405; J2543; J7040; J7050

== ENCOUNTER 2021-12-05 09:52 | Inpatient (IN) | payer MEDICARE ==
[2021-12-05] MEDS ORDERED: Sodium Chloride 0.9% 10 ML Syringe FLUSH PRN (10:21)
[2021-12-05] MEDS ORDERED: Sodium Chloride 0.9% 2.5 ML Syringe FLUSH PRN (10:21)
[2021-12-05] MEDS ORDERED: Sodium Chloride 0.9% 1,000 ML IV ONE (10:22)
[2021-12-05] MEDS ORDERED: Ketorolac 30 MG/ML SDV IVPUSH ONE (10:22)
[2021-12-05 11:32] LABS: BLOOD UREA NITROGEN,BUN 17 mg/dL (7.0-18.0); CARBON DIOXIDE,CO2 27.8 mmol/L (21.0-32.0); CHLORIDE,CL 99 mmol/L (98-107); GLUCOSE RANDOM 154 mg/dL (74-106); POTASSIUM,K 3.6 mmol/L (3.5-5.1); SODIUM,NA 137 mmol/L (136-148)
[2021-12-05] MEDS ORDERED: HYDROmorphone 1 MG/ML Syringe IVPUSH ONE (11:35)
[2021-12-05 11:42] LABS: ESTIMATED GFR 76 mL/min (>60)
[2021-12-05] MEDS: Sodium Chloride 0.9% 1,000 ML IV SCH ×2 (13:46→23:03)
[2021-12-05] MEDS ORDERED: Iopamidol 755 MG/ML 500 ML Multipack Bottle IVPUSH STA (15:08)
[2021-12-05] MEDS ORDERED: cefTRIAXone 1 GM in Sodium Chloride 0.9% 50 ML IV ONE (15:51)
[2021-12-05] MEDS ORDERED: Lidocaine 2% 11 ML Jelly Filled Syringe TOP ONE (16:30)
[2021-12-05] MEDS ORDERED: Acetaminophen 325 MG Tab PO PRN (17:00)
[2021-12-05] MEDS ORDERED: Albuterol/Ipratropium 3.0-0.5 MG/3 ML Neb Soln NEB PRN (17:00)
[2021-12-05] MEDS ORDERED: Ondansetron 4 MG/2 ML SDV IVPUSH PRN (17:01)
[2021-12-05] MEDS ORDERED: HYDROmorphone 2 MG/ML Syringe IVPUSH PRN (17:05)
[2021-12-05] MEDS ORDERED: Pantoprazole 40 MG Tab.CR PO SCH (17:15)
[2021-12-05] MEDS ORDERED: Polyethylene Glycol 3350 Powder 17 GM Packet PO PRN (17:51)
[2021-12-05] MEDS: Pantoprazole 40 MG Tab.CR PO SCH (21:23)
[2021-12-05] MEDS: oxyCODONE 5 MG/5 ML Cup PO SCH (23:03)
[2021-12-06] MEDS: Sodium Chloride 0.9% 1,000 ML IV SCH ×2 (05:17→12:12)
[2021-12-06] MEDS: oxyCODONE 5 MG/5 ML Cup PO SCH ×3 (05:17→21:17)
[2021-12-06 07:21] LABS: CARBON DIOXIDE,CO2 28.6 mmol/L (21.0-32.0); POTASSIUM,K 3.6 mmol/L (3.5-5.1)
[2021-12-06] MEDS: Docusate Sodium 100 MG Cap PO SCH ×2 (09:09→21:17)
[2021-12-06] MEDS ORDERED: HYDROmorphone 1 MG/ML Syringe IVPUSH PRN (10:48)
[2021-12-06] MEDS: cefTRIAXone 1 GM in Sodium Chloride 0.9% 50 ML IV SCH (15:24)
[2021-12-06] MEDS: Pantoprazole 40 MG Tab.CR PO SCH (21:17)
[2021-12-07] MEDS: oxyCODONE 5 MG/5 ML Cup PO SCH ×3 (07:28→23:00)
[2021-12-07 07:30] LABS: CARBON DIOXIDE,CO2 28.3 mmol/L (21.0-32.0); POTASSIUM,K 3.7 mmol/L (3.5-5.1)
[2021-12-07] MEDS ORDERED: hydrALAZINE 20 MG/ML SDV IVPUSH ONE (07:54)
[2021-12-07] MEDS: Docusate Sodium 100 MG Cap PO SCH ×2 (08:28→20:17)
[2021-12-07] MEDS ORDERED: HYDROmorphone 2 MG/ML Syringe IVPUSH PRN (10:47)
[2021-12-07] MEDS ORDERED: Ketorolac 30 MG/ML SDV IVPUSH PRN (10:48)
[2021-12-07] MEDS: Lidocaine 5% 700 MG Patch TRDERM SCH (11:15)
[2021-12-07] MEDS: Heparin Sodium 5,000 Units/ML Vial SUBCUT SCH ×2 (11:15→23:22)
[2021-12-07] MEDS: Acetaminophen 325 MG Tab PO SCH ×3 (11:15→23:21)
[2021-12-07] MEDS: cefTRIAXone 1 GM in Sodium Chloride 0.9% 50 ML IV SCH (15:40)
[2021-12-07] MEDS: Pantoprazole 40 MG Tab.CR PO SCH (20:17)
[2021-12-07] MEDS: [UNRECOGNIZED DRUG - OTHER] TRDERM SCH (23:30)
[2021-12-08] MEDS: oxyCODONE 5 MG/5 ML Cup PO SCH ×3 (05:06→21:31)
[2021-12-08] MEDS: Acetaminophen 325 MG Tab PO SCH ×4 (05:06→23:18)
[2021-12-08 06:39] LABS: CARBON DIOXIDE,CO2 25.4 mmol/L (21.0-32.0); POTASSIUM,K 3.7 mmol/L (3.5-5.1)
[2021-12-08] MEDS: Tamsulosin 0.4 MG Cap.ER PO SCH (09:19)
[2021-12-08] MEDS: Docusate Sodium 100 MG Cap PO SCH ×2 (09:19→21:31)
[2021-12-08] MEDS: Heparin Sodium 5,000 Units/ML Vial SUBCUT SCH ×2 (10:50→23:18)
[2021-12-08] MEDS: Lidocaine 5% 700 MG Patch TRDERM SCH (10:50)
[2021-12-08] MEDS: cefTRIAXone 1 GM in Sodium Chloride 0.9% 50 ML IV SCH (14:31)
[2021-12-08] MEDS: Lactated Ringers 1,000 ML IV SCH (18:12)
[2021-12-08] MEDS: Pantoprazole 40 MG Tab.CR PO SCH (21:31)
[2021-12-08] MEDS: [UNRECOGNIZED DRUG - OTHER] TRDERM SCH (23:20)
[2021-12-09] MEDS: Lactated Ringers 1,000 ML IV SCH ×2 (02:18→09:51)
[2021-12-09] MEDS: Acetaminophen 325 MG Tab PO SCH ×2 (05:51→10:46)
[2021-12-09] MEDS: oxyCODONE 5 MG/5 ML Cup PO SCH (05:51)
[2021-12-09 06:04] LABS: CARBON DIOXIDE,CO2 29.7 mmol/L (21.0-32.0); POTASSIUM,K 4.4 mmol/L (3.5-5.1)
[2021-12-09] MEDS: Docusate Sodium 100 MG Cap PO SCH (09:26)
[2021-12-09] MEDS: Tamsulosin 0.4 MG Cap.ER PO SCH (09:26)
[2021-12-09] MEDS: Heparin Sodium 5,000 Units/ML Vial SUBCUT SCH (10:43)
[2021-12-09] MEDS: Lidocaine 5% 700 MG Patch TRDERM SCH (10:47)
[2021-12-09 11:30] VITALS: BP 194/90; PULSE 95
== END 2021-12-09 13:20 | disposition home or self-care (01) | DRG 690 ==
LOC: MW.ED 09:52 → UNDOADMIN 15:00 → MW.MS 15:00 → UNDODISIN 12-09 13:20
PROVIDERS: ADMIT Student in an Organized Health Care Education/Training Program; ATTEND Internal Medicine
DX: N30.00 Acute cystitis without hematuria (principal); M54.50 Low back pain, unspecified; R26.2 Difficulty in walking, not elsewhere classified; R33.9 Retention of urine, unspecified; K59.00 Constipation, unspecified; I16.0 Hypertensive urgency; B96.20 Unspecified Escherichia coli [E. coli] as the cause of diseases classified elsewhere; Z20.822 Contact with and (suspected) exposure to COVID-19; E16.2 Hypoglycemia, unspecified; W18.2XXA Fall in (into) shower or empty bathtub, initial encounter; Z96.642 Presence of left artificial hip joint; K27.9 Peptic ulcer, site unspecified, unspecified as acute or chronic, without hemorrhage or perforation; Z87.11 Personal history of peptic ulcer disease; Z85.528 Personal history of other malignant neoplasm of kidney; Z79.899 Other long term (current) drug therapy; Z87.19 Personal history of other diseases of the digestive system; Z86.19 Personal history of other infectious and parasitic diseases; Z85.53 Personal history of malignant neoplasm of renal pelvis; Z85.59 Personal history of malignant neoplasm of other urinary tract organ; Z85.46 Personal history of malignant neoplasm of prostate
CPT/HCPCS: 36415; 71045; 72100; 72220; 74177; 80053; 81001; 83735; 84484 ×2; 85025; 85610; 93005; 96361; 96374; 96375; 99284; J1170; J1885; J3490; J7030 ×2; U0002; 51798; 80048; 82947; 87086; 87088; 87186; 93010; 97116-GP; 97163-GP; 97530-GP; 99221; 99232; 99239; A9270-GY; J0360; J0696; J1644; J7120; J7121; Q9967

== ENCOUNTER 2022-03-13 16:56 | Inpatient (IN) | payer MEDICARE ==
[2022-03-13] MEDS ORDERED: Ondansetron 4 MG/2 ML SDV IVPUSH ONE (20:12)
[2022-03-13] MEDS ORDERED: traMADol 50 MG Tab PO ONE (20:12)
[2022-03-13] MEDS ORDERED: Sodium Chloride 0.9% 1,000 ML IV ONE (21:05)
[2022-03-13] MEDS ORDERED: Ketorolac 30 MG/ML SDV IVPUSH ONE (21:13)
[2022-03-13 21:57] LABS: CARBON DIOXIDE,CO2 28.3 mmol/L (21.0-32.0); POTASSIUM,K 4.2 mmol/L (3.5-5.1)
[2022-03-13 21:58] LABS: CORONAVIRUS COVID-19 NAA NEGATIVE (NEGATIVE); INFLUENZA A NAA NEGATIVE (NEGATIVE); INFLUENZA B NAA NEGATIVE (NEGATIVE)
[2022-03-13] MEDS ORDERED: Albuterol/Ipratropium 3.0-0.5 MG/3 ML Neb Soln NEB PRN (23:22)
[2022-03-13] MEDS ORDERED: Ondansetron 4 MG/2 ML SDV IVPUSH PRN (23:23)
[2022-03-13] MEDS ORDERED: Lactated Ringers 1,000 ML IV SCH (23:30)
[2022-03-13] MEDS: Morphine 2 MG/ML SYRINGE IVPUSH PRN (23:57)
[2022-03-13] MEDS: Pantoprazole 40 MG in Sodium Chloride 0.9% 10 ML IVPUSH SCH (23:58)
[2022-03-14 07:42] LABS: CARBON DIOXIDE,CO2 27.1 mmol/L (21.0-32.0); POTASSIUM,K 3.8 mmol/L (3.5-5.1)
[2022-03-14] MEDS: Pantoprazole 40 MG in Sodium Chloride 0.9% 10 ML IVPUSH SCH (08:23)
[2022-03-14] MEDS: Morphine 2 MG/ML SYRINGE IVPUSH PRN (08:29)
[2022-03-14] MEDS ORDERED: Acetaminophen 325 MG Tab PO PRN (08:30)
[2022-03-14] MEDS: Docusate Sodium 100 MG Cap PO SCH ×2 (08:41→21:35)
[2022-03-14] MEDS: Tamsulosin 0.4 MG Cap.ER PO SCH (14:11)
[2022-03-14] MEDS: Acetaminophen 325 MG Tab PO SCH ×3 (14:11→21:35)
[2022-03-14] MEDS: cefTRIAXone 1 GM in Sodium Chloride 0.9% 50 ML IV SCH (14:27)
[2022-03-15] MEDS: Acetaminophen 325 MG Tab PO SCH ×6 (04:16→21:41)
[2022-03-15] MEDS: Pantoprazole 40 MG Tab.CR PO SCH ×3 (06:13→06:33)
[2022-03-15 07:40] LABS: CARBON DIOXIDE,CO2 27.5 mmol/L (21.0-32.0); POTASSIUM,K 3.7 mmol/L (3.5-5.1)
[2022-03-15] MEDS: Docusate Sodium 100 MG Cap PO SCH ×3 (07:48→21:41)
[2022-03-15] MEDS: Tamsulosin 0.4 MG Cap.ER PO SCH (07:48)
[2022-03-15] MEDS: cefTRIAXone 1 GM in Sodium Chloride 0.9% 50 ML IV SCH (13:56)
[2022-03-16] MEDS: Acetaminophen 325 MG Tab PO SCH ×6 (01:22→18:25)
[2022-03-16] MEDS: Pantoprazole 40 MG Tab.CR PO SCH (06:56)
[2022-03-16] MEDS: Docusate Sodium 100 MG Cap PO SCH ×3 (07:40→20:21)
[2022-03-16] MEDS: Tamsulosin 0.4 MG Cap.ER PO SCH (07:40)
[2022-03-16 07:59] LABS: CARBON DIOXIDE,CO2 27.1 mmol/L (21.0-32.0)
[2022-03-16] MEDS: Fluticasone/Salmeterol 100-50 MCG Inhalation Powder 14/Diskus INH SCH ×2 (11:29→20:21)
[2022-03-16] MEDS: cefTRIAXone 1 GM in Sodium Chloride 0.9% 50 ML IV SCH (13:58)
[2022-03-16] MEDS: Heparin Sodium 5,000 Units/ML Vial SUBCUT SCH (20:41)
[2022-03-17] MEDS: Acetaminophen 325 MG Tab PO SCH ×4 (00:08→11:14)
[2022-03-17] MEDS: Pantoprazole 40 MG Tab.CR PO SCH (06:42)
[2022-03-17 07:44] LABS: CARBON DIOXIDE,CO2 29.1 mmol/L (21.0-32.0); POTASSIUM,K 3.7 mmol/L (3.5-5.1)
[2022-03-17] MEDS: Heparin Sodium 5,000 Units/ML Vial SUBCUT SCH (08:36)
[2022-03-17] MEDS: Docusate Sodium 100 MG Cap PO SCH (08:36)
[2022-03-17] MEDS: Tamsulosin 0.4 MG Cap.ER PO SCH (08:36)
[2022-03-17] MEDS: Fluticasone/Salmeterol 100-50 MCG Inhalation Powder 14/Diskus INH SCH (08:44)
[2022-03-17 12:32] VITALS: BP 182/81; PULSE 79
== END 2022-03-17 14:30 | disposition home or self-care (01) | DRG 690 ==
LOC: MW.ED 16:56 → MW.MS 20:11 → OBSVTOIN 03-15 08:41 → MW.MS 03-15 09:48
PROVIDERS: ADMIT Student in an Organized Health Care Education/Training Program; ATTEND Student in an Organized Health Care Education/Training Program
DX: N30.00 Acute cystitis without hematuria (principal); K92.2 Gastrointestinal hemorrhage, unspecified; S79.912A Unspecified injury of left hip, initial encounter; M25.552 Pain in left hip; R26.2 Difficulty in walking, not elsewhere classified; Z20.822 Contact with and (suspected) exposure to COVID-19; Z66 Do not resuscitate; R33.8 Other retention of urine; N40.1 Benign prostatic hyperplasia with lower urinary tract symptoms; Z85.528 Personal history of other malignant neoplasm of kidney; Z85.46 Personal history of malignant neoplasm of prostate; Z87.891 Personal history of nicotine dependence; Z90.49 Acquired absence of other specified parts of digestive tract; W19.XXXA Unspecified fall, initial encounter; W10.9XXA Fall (on) (from) unspecified stairs and steps, initial encounter
CPT/HCPCS: 0240U; 36415; 51702; 70450; 71045; 72125; 72192; 73502; 73552; 80048; 80053; 81001; 83735; 84100; 85025; 87086; 97161; 97530; 96361; 96374; 96375; 96376; 99285-25; A9270-GY; C9113; G0378; J0696; J1644; J1885; J2270; J2405; J3490; J7030; J7120

== ENCOUNTER 2022-03-25 22:28 | Emergency (ER) | payer MEDICARE ==
[2022-03-25] MEDS ORDERED: Ketorolac 30 MG/ML SDV IVPUSH ONE (22:53)
[2022-03-26] MEDS ORDERED: fentaNYL 50 MCG/ML SDV IVPUSH ONE (00:06)
[2022-03-26 00:42] VITALS: BP 110/54; PULSE 57
== END 2022-03-26 00:41 | disposition home or self-care (01) ==
LOC: MW.ED 22:28
DX: M25.552 Pain in left hip (principal)
CPT/HCPCS: 73502; 96374; 96375; 99283; J1885; J3010

== ENCOUNTER 2022-03-30 22:44 | Emergency (ER) | payer MEDICARE ==
[2022-03-30 23:27] LABS: CARBON DIOXIDE,CO2 29.7 mmol/L (21.0-32.0); POTASSIUM,K 3.6 mmol/L (3.5-5.1)
[2022-03-31 02:14] VITALS: BP 122/74; PULSE 71
== END 2022-03-31 02:15 | disposition home or self-care (01) ==
LOC: MW.ED 22:44
DX: S72.115A Nondisplaced fracture of greater trochanter of left femur, initial encounter for closed fracture (principal); S32.010A Wedge compression fracture of first lumbar vertebra, initial encounter for closed fracture; Z79.899 Other long term (current) drug therapy; Z91.018 Allergy to other foods
CPT/HCPCS: 36415; 71045; 71045-26; 74176; 74176-26; 80053; 85025; 99284

== ENCOUNTER 2022-03-31 21:11 | Inpatient (IN) | payer MEDICARE ==
[2022-03-31] MEDS ORDERED: Ondansetron 4 MG/2 ML SDV IVPUSH ONE (21:30)
[2022-03-31 22:24] LABS: CARBON DIOXIDE,CO2 31.4 mmol/L (21.0-32.0); POTASSIUM,K 3.9 mmol/L (3.5-5.1)
[2022-03-31] MEDS ORDERED: Lactated Ringers 1,000 ML IV ONE (23:20)
[2022-04-01] MEDS ORDERED: Ondansetron 4 MG/2 ML SDV IVPUSH PRN (01:30)
[2022-04-01] MEDS: Sodium Chloride 0.9% 1,000 ML IV SCH ×3 (02:02→17:53)
[2022-04-01 02:03] LABS: CORONAVIRUS COVID-19 NAA NEGATIVE (NEGATIVE); INFLUENZA A NAA NEGATIVE (NEGATIVE); INFLUENZA B NAA NEGATIVE (NEGATIVE); RESPIRATORY SYNCYTIAL VIR NAA NEGATIVE (NEGATIVE)
[2022-04-01 07:26] LABS: CARBON DIOXIDE,CO2 28.9 mmol/L (21.0-32.0); POTASSIUM,K 4.3 mmol/L (3.5-5.1)
[2022-04-01] MEDS: Morphine 2 MG/ML SYRINGE IVPUSH PRN ×3 (12:47→22:57)
[2022-04-01] MEDS ORDERED: Albuterol/Ipratropium 3.0-0.5 MG/3 ML Neb Soln NEB PRN (14:00)
[2022-04-02] MEDS: Sodium Chloride 0.9% 1,000 ML IV SCH ×2 (01:33→09:32)
[2022-04-02 07:12] LABS: CARBON DIOXIDE,CO2 26.6 mmol/L (21.0-32.0); POTASSIUM,K 4.1 mmol/L (3.5-5.1)
[2022-04-02] MEDS: Morphine 2 MG/ML SYRINGE IVPUSH PRN (08:05)
[2022-04-02] MEDS: Polyethylene Glycol 3350 Powder 17 GM Packet PO SCH (14:16)
[2022-04-03 06:29] LABS: CARBON DIOXIDE,CO2 29.6 mmol/L (21.0-32.0); POTASSIUM,K 4.1 mmol/L (3.5-5.1)
[2022-04-03] MEDS: Polyethylene Glycol 3350 Powder 17 GM Packet PO SCH (09:11)
[2022-04-03 13:23] VITALS: BP 136/72; PULSE 72
== END 2022-04-03 13:10 | disposition home or self-care (01) | DRG 388 ==
LOC: MW.ED 21:11 → MW.MS 23:21
PROVIDERS: ADMIT Internal Medicine; ATTEND Internal Medicine
DX: K56.609 Unspecified intestinal obstruction, unspecified as to partial versus complete obstruction (principal); K56.600 Partial intestinal obstruction, unspecified as to cause; S72.115A Nondisplaced fracture of greater trochanter of left femur, initial encounter for closed fracture; S32.019A Unspecified fracture of first lumbar vertebra, initial encounter for closed fracture; K59.00 Constipation, unspecified; K43.9 Ventral hernia without obstruction or gangrene; K44.9 Diaphragmatic hernia without obstruction or gangrene; I25.10 Atherosclerotic heart disease of native coronary artery without angina pectoris; N20.0 Calculus of kidney; N40.0 Benign prostatic hyperplasia without lower urinary tract symptoms; Z20.822 Contact with and (suspected) exposure to COVID-19; Z79.899 Other long term (current) drug therapy; Z91.018 Allergy to other foods; Z85.46 Personal history of malignant neoplasm of prostate; Z90.49 Acquired absence of other specified parts of digestive tract
CPT/HCPCS: 0241U; 36415; 74176; 80048; 80053; 82947; 83690; 85025; 97161; A9270-GY; J2270; J2405; J7030; J7120

== ENCOUNTER 2022-04-08 23:31 | Inpatient (IN) | payer MEDICARE ==
[2022-04-08] MEDS ORDERED: Sodium Chloride 0.9% 1,000 ML IV ONE (23:59)
[2022-04-09] MEDS ORDERED: Ondansetron 4 MG/2 ML SDV IVPUSH ONE (00:03)
[2022-04-09] MEDS ORDERED: Morphine 4 MG/ML Syringe IVPUSH ONE (00:03)
[2022-04-09] MEDS ORDERED: cefTRIAXone 1 GM in Sodium Chloride 0.9% 50 ML IV ONE (01:27)
[2022-04-09 01:38] LABS: CARBON DIOXIDE,CO2 29.4 mmol/L (21.0-32.0); POTASSIUM,K 4.5 mmol/L (3.5-5.1)
[2022-04-09] MEDS ORDERED: Iopamidol 755 MG/ML 500 ML Multipack Bottle IVPUSH ONE (01:49)
[2022-04-09] MEDS ORDERED: cefTRIAXone 1 GM in Sodium Chloride 0.9% 50 ML IV SCH ×2 (05:00→07:45)
[2022-04-09 06:16] LABS: CARBON DIOXIDE,CO2 28.7 mmol/L (21.0-32.0); POTASSIUM,K 3.9 mmol/L (3.5-5.1)
[2022-04-09] MEDS ORDERED: Albuterol/Ipratropium 3.0-0.5 MG/3 ML Neb Soln NEB PRN (07:38)
[2022-04-09] MEDS ORDERED: Ondansetron 4 MG/2 ML SDV IVPUSH PRN (07:40)
[2022-04-09] MEDS: Fluticasone/Salmeterol 100-50 MCG Inhalation Powder 14/Diskus INH SCH ×2 (08:51→20:07)
[2022-04-09] MEDS: Polyethylene Glycol 3350 Powder 17 GM Packet PO SCH (08:52)
[2022-04-09] MEDS: Tamsulosin 0.4 MG Cap.ER PO SCH (08:52)
[2022-04-09] MEDS ORDERED: Docusate Sodium 100 MG Cap PO SCH (09:00)
[2022-04-09] MEDS ORDERED: Magnesium Sulfate/Water 2 GM in Premix Bag 1 BAG IV ONE (09:36)
[2022-04-09] MEDS: Acetaminophen 325 MG Tab PO PRN (21:17)
[2022-04-09] MEDS: Piperacillin/Tazobactam 3.375 GM in Sodium Chloride 0.9% 50 ML IV SCH (21:50)
[2022-04-10] MEDS ORDERED: cefTRIAXone 1 GM in Sodium Chloride 0.9% 50 ML IV SCH (02:00)
[2022-04-10] MEDS: Piperacillin/Tazobactam 3.375 GM in Sodium Chloride 0.9% 50 ML IV SCH ×4 (03:04→21:53)
[2022-04-10 06:13] LABS: CARBON DIOXIDE,CO2 29.5 mmol/L (21.0-32.0); POTASSIUM,K 3.4 mmol/L (3.5-5.1)
[2022-04-10] MEDS: Pantoprazole 40 MG Tab.CR PO SCH ×2 (06:20→06:32)
[2022-04-10] MEDS: Docusate Sodium 100 MG Cap PO SCH ×2 (08:12→21:50)
[2022-04-10] MEDS: Polyethylene Glycol 3350 Powder 17 GM Packet PO SCH (08:12)
[2022-04-10] MEDS: Tamsulosin 0.4 MG Cap.ER PO SCH (08:12)
[2022-04-10] MEDS: Fluticasone/Salmeterol 100-50 MCG Inhalation Powder 14/Diskus INH SCH ×2 (09:40→21:51)
[2022-04-11] MEDS: Piperacillin/Tazobactam 3.375 GM in Sodium Chloride 0.9% 50 ML IV SCH (04:04)
[2022-04-11 06:38] LABS: CARBON DIOXIDE,CO2 27.9 mmol/L (21.0-32.0); POTASSIUM,K 3.5 mmol/L (3.5-5.1)
[2022-04-11] MEDS ORDERED: Potassium Chloride 20 MEQ Tab.ER PO ONE (08:01)
[2022-04-11] MEDS ORDERED: Magnesium Sulfate/Water 2 GM in Premix Bag 1 BAG IV ONE (08:01)
[2022-04-11] MEDS: Pantoprazole 40 MG Tab.CR PO SCH (08:28)
[2022-04-11] MEDS: Tamsulosin 0.4 MG Cap.ER PO SCH (08:28)
[2022-04-11] MEDS: Docusate Sodium 100 MG Cap PO SCH ×2 (08:29→21:20)
[2022-04-11] MEDS: Polyethylene Glycol 3350 Powder 17 GM Packet PO SCH (08:29)
[2022-04-11] MEDS: Acetaminophen 325 MG Tab PO PRN (08:35)
[2022-04-11] MEDS: Fluticasone/Salmeterol 100-50 MCG Inhalation Powder 14/Diskus INH SCH ×2 (08:36→21:20)
[2022-04-11] MEDS: Piperacillin/Tazobactam 4.5 GM in Sodium Chloride 0.9% 100 ML IV SCH ×3 (10:32→21:19)
[2022-04-11] MEDS: Carboxymethylcellulose Sodium 0.5% Ophth Soln 0.4 ML UD Box of 30 EYEBOTH SCH ×4 (10:32→21:20)
[2022-04-12] MEDS: Carboxymethylcellulose Sodium 0.5% Ophth Soln 0.4 ML UD Box of 30 EYEBOTH SCH ×4 (03:11→15:20)
[2022-04-12] MEDS: Piperacillin/Tazobactam 4.5 GM in Sodium Chloride 0.9% 100 ML IV SCH ×2 (03:12→15:19)
[2022-04-12 06:26] LABS: CARBON DIOXIDE,CO2 26.8 mmol/L (21.0-32.0); POTASSIUM,K 3.9 mmol/L (3.5-5.1)
[2022-04-12] MEDS: Pantoprazole 40 MG Tab.CR PO SCH ×2 (06:28→07:49)
[2022-04-12] MEDS ORDERED: Sodium Chloride 0.9% 1,000 ML IV ONE (08:00)
[2022-04-12] MEDS: Polyethylene Glycol 3350 Powder 17 GM Packet PO SCH (08:48)
[2022-04-12] MEDS: Tamsulosin 0.4 MG Cap.ER PO SCH (08:48)
[2022-04-12] MEDS: Docusate Sodium 100 MG Cap PO SCH (08:48)
[2022-04-12] MEDS: Fluticasone/Salmeterol 100-50 MCG Inhalation Powder 14/Diskus INH SCH (08:51)
[2022-04-12] MEDS ORDERED: Polymyxin B/Trimethoprim 10 ML Bottle EYEBOTH SCH (09:00)
[2022-04-12] MEDS ORDERED: Erythromycin Base 0.5% Ophth Oint 1 GM Tube EYEBOTH SCH (09:30)
[2022-04-12] MEDS ORDERED: Ciprofloxacin 250 MG Tab PO ONE (11:00)
[2022-04-12 13:03] VITALS: BP 170/74; PULSE 89
== END 2022-04-12 14:15 | disposition home or self-care (01) | DRG 699 ==
LOC: MW.ED 23:31 → MW.MS 04-09 03:15 → OBSVTOIN 04-09 03:15 → MW.MS 04-10 10:48
PROVIDERS: ADMIT Internal Medicine; ATTEND Internal Medicine
DX: T83.511A Infection and inflammatory reaction due to indwelling urethral catheter, initial encounter (principal); N30.00 Acute cystitis without hematuria; R78.81 Bacteremia; S32.010A Wedge compression fracture of first lumbar vertebra, initial encounter for closed fracture; K59.00 Constipation, unspecified; R26.2 Difficulty in walking, not elsewhere classified; S72.115D Nondisplaced fracture of greater trochanter of left femur, subsequent encounter for closed fracture with routine healing; N40.0 Benign prostatic hyperplasia without lower urinary tract symptoms; I25.10 Atherosclerotic heart disease of native coronary artery without angina pectoris; Z66 Do not resuscitate; K27.9 Peptic ulcer, site unspecified, unspecified as acute or chronic, without hemorrhage or perforation; B96.5 Pseudomonas (aeruginosa) (mallei) (pseudomallei) as the cause of diseases classified elsewhere; Y84.6 Urinary catheterization as the cause of abnormal reaction of the patient, or of later complication, without mention of misadventure at the time of the procedure; E86.0 Dehydration; Z85.528 Personal history of other malignant neoplasm of kidney; Z79.899 Other long term (current) drug therapy; Z91.018 Allergy to other foods; Z85.46 Personal history of malignant neoplasm of prostate; Z86.16 Personal history of COVID-19; Z90.49 Acquired absence of other specified parts of digestive tract; Z87.891 Personal history of nicotine dependence; Z87.19 Personal history of other diseases of the digestive system; Z20.822 Contact with and (suspected) exposure to COVID-19; Z96.0 Presence of urogenital implants
CPT/HCPCS: 36415; 51702; 71045; 71045-26; 74177; 74177-26; 80048; 80053; 80307; 81001; 83605; 83690; 83735; 84484; 85025; 87040; 87077; 87086; 87088; 87154; 87186; 96361; 96365; 96366; 96367; 96375; 96376; 97161-GP; 97165-GO; 97530-GP; 99285-25; A9270-GY; G0378; J0696; J2270; J2405; J2543; J3475; J3490; J7030; J7050; Q9967; U0002

== ENCOUNTER 2022-04-13 23:55 | Inpatient (IN) | payer MEDICARE ==
[2022-04-14 00:51] LABS: BLOOD UREA NITROGEN,BUN 8 mg/dL (7.0-18.0); CARBON DIOXIDE,CO2 25.5 mmol/L (21.0-32.0); CHLORIDE,CL 92 mmol/L (98-107); GLUCOSE RANDOM 100 mg/dL (74-106); SODIUM,NA 127 mmol/L (136-148)
[2022-04-14 01:17] LABS: ESTIMATED GFR 86 mL/min (>60)
[2022-04-14] MEDS ORDERED: Lactated Ringers 1,000 ML IV STA ×2 (01:29→03:53)
[2022-04-14] MEDS ORDERED: Magnesium Sulfate/Water 2 GM in Premix Bag 1 BAG IV ONE (01:29)
[2022-04-14] MEDS ORDERED: Piperacillin/Tazobactam 3.375 GM in Sodium Chloride 0.9% 50 ML IV ONE (05:09)
[2022-04-14] MEDS ORDERED: Acetaminophen 325 MG Tab PO PRN (09:24)
[2022-04-14] MEDS ORDERED: Sodium Chloride 0.9% 2.5 ML Syringe FLUSH PRN (09:24)
[2022-04-14] MEDS ORDERED: Sodium Chloride 0.9% 10 ML Syringe FLUSH PRN (09:24)
[2022-04-14] MEDS ORDERED: Ondansetron 4 MG/2 ML SDV IVPUSH PRN (09:24)
[2022-04-14] MEDS: Docusate Sodium 100 MG Cap PO SCH ×2 (10:44→20:00)
[2022-04-14 11:22] LABS: CARBON DIOXIDE,CO2 26.6 mmol/L (21.0-32.0); POTASSIUM,K 3.6 mmol/L (3.5-5.1)
[2022-04-14] MEDS: Meropenem 2 GM in Sodium Chloride 0.9% 100 ML IV SCH ×2 (12:24→18:31)
[2022-04-14] MEDS: Erythromycin Base 0.5% Ophth Oint 1 GM Tube EYEBOTH SCH ×2 (15:16→19:59)
[2022-04-15] MEDS: Erythromycin Base 0.5% Ophth Oint 1 GM Tube EYEBOTH SCH ×4 (02:27→18:52)
[2022-04-15] MEDS: Meropenem 2 GM in Sodium Chloride 0.9% 100 ML IV SCH ×3 (02:30→18:51)
[2022-04-15 07:52] LABS: CARBON DIOXIDE,CO2 25.3 mmol/L (21.0-32.0); POTASSIUM,K 3.4 mmol/L (3.5-5.1)
[2022-04-15] MEDS: Docusate Sodium 100 MG Cap PO SCH ×3 (08:47→20:08)
[2022-04-15] MEDS ORDERED: Potassium Chloride 20 MEQ Tab.ER PO ONE (11:50)
[2022-04-16] MEDS: Erythromycin Base 0.5% Ophth Oint 1 GM Tube EYEBOTH SCH ×5 (01:01→19:55)
[2022-04-16] MEDS: Meropenem 2 GM in Sodium Chloride 0.9% 100 ML IV SCH ×3 (02:40→18:31)
[2022-04-16 07:27] LABS: POTASSIUM,K 3.6 mmol/L (3.5-5.1)
[2022-04-16] MEDS: Docusate Sodium 100 MG Cap PO SCH ×2 (08:24→20:25)
[2022-04-16] MEDS ORDERED: Sodium Chloride 0.65% Nasal Spray 45 ML Bottle NAS PRN (09:30)
[2022-04-17] MEDS: Erythromycin Base 0.5% Ophth Oint 1 GM Tube EYEBOTH SCH ×4 (02:27→18:50)
[2022-04-17] MEDS: Meropenem 2 GM in Sodium Chloride 0.9% 100 ML IV SCH ×3 (02:31→18:50)
[2022-04-17 06:09] LABS: CARBON DIOXIDE,CO2 26.7 mmol/L (21.0-32.0); POTASSIUM,K 3.5 mmol/L (3.5-5.1)
[2022-04-17] MEDS ORDERED: Magnesium Sulfate/Water 2 GM in Premix Bag 1 BAG IV ONE (08:12)
[2022-04-17] MEDS: Docusate Sodium 100 MG Cap PO SCH ×2 (08:43→20:42)
[2022-04-17] MEDS: Carboxymethylcellulose Sodium 0.5% Ophth Soln 0.4 ML UD Box of 30 EYEBOTH PRN (12:28)
[2022-04-17] MEDS ORDERED: Albuterol/Ipratropium 3.0-0.5 MG/3 ML Neb Soln NEB PRN (22:31)
[2022-04-18] MEDS: Erythromycin Base 0.5% Ophth Oint 1 GM Tube EYEBOTH SCH ×4 (02:26→19:51)
[2022-04-18] MEDS: Meropenem 2 GM in Sodium Chloride 0.9% 100 ML IV SCH ×3 (02:30→18:42)
[2022-04-18 06:12] LABS: CARBON DIOXIDE,CO2 26.6 mmol/L (21.0-32.0); POTASSIUM,K 3.7 mmol/L (3.5-5.1)
[2022-04-18] MEDS: Fluticasone NASAL Spray 16 GM Bottle NASBOTH SCH (09:33)
[2022-04-18] MEDS: Docusate Sodium 100 MG Cap PO SCH ×2 (09:33→20:01)
[2022-04-18] MEDS: Polyethylene Glycol 3350 Powder 17 GM Packet PO SCH (09:34)
[2022-04-18] MEDS: Carboxymethylcellulose Sodium 0.5% Ophth Soln 0.4 ML UD Box of 30 EYEBOTH PRN (09:34)
[2022-04-19] MEDS: Erythromycin Base 0.5% Ophth Oint 1 GM Tube EYEBOTH SCH ×4 (02:35→20:13)
[2022-04-19] MEDS: Meropenem 2 GM in Sodium Chloride 0.9% 100 ML IV SCH ×3 (02:37→18:36)
[2022-04-19 06:36] LABS: CARBON DIOXIDE,CO2 27.8 mmol/L (21.0-32.0); POTASSIUM,K 3.7 mmol/L (3.5-5.1)
[2022-04-19] MEDS ORDERED: Bisacodyl 5 MG Tab PO ONE (08:07)
[2022-04-19] MEDS: Docusate Sodium 100 MG Cap PO SCH ×2 (08:20→20:12)
[2022-04-19] MEDS: Polyethylene Glycol 3350 Powder 17 GM Packet PO SCH (08:20)
[2022-04-19] MEDS: Fluticasone NASAL Spray 16 GM Bottle NASBOTH SCH (08:21)
[2022-04-20] MEDS: Erythromycin Base 0.5% Ophth Oint 1 GM Tube EYEBOTH SCH ×2 (02:34→06:52)
[2022-04-20] MEDS: Meropenem 2 GM in Sodium Chloride 0.9% 100 ML IV SCH (02:34)
[2022-04-20 06:12] LABS: CARBON DIOXIDE,CO2 27.6 mmol/L (21.0-32.0); POTASSIUM,K 4.1 mmol/L (3.5-5.1)
[2022-04-20] MEDS: Polyethylene Glycol 3350 Powder 17 GM Packet PO SCH (08:51)
[2022-04-20] MEDS: Docusate Sodium 100 MG Cap PO SCH (08:53)
[2022-04-20] MEDS: Fluticasone NASAL Spray 16 GM Bottle NASBOTH SCH (08:54)
[2022-04-20 11:31] VITALS: BP 103/67; PULSE 86
== END 2022-04-20 11:45 | disposition home health service (06) | DRG 948 ==
LOC: MW.ED 23:55 → MW.MS 04-14 05:56 → OBSVTOIN 04-14 12:49 → MW.MS 04-14 16:51
PROVIDERS: ADMIT Internal Medicine; ATTEND Internal Medicine
DX: R41.0 Disorientation, unspecified (principal); G93.40 Encephalopathy, unspecified; N39.0 Urinary tract infection, site not specified; N13.8 Other obstructive and reflux uropathy; E87.1 Hypo-osmolality and hyponatremia; R26.2 Difficulty in walking, not elsewhere classified; K59.00 Constipation, unspecified; Z66 Do not resuscitate; B96.5 Pseudomonas (aeruginosa) (mallei) (pseudomallei) as the cause of diseases classified elsewhere; R29.6 Repeated falls; Z96.0 Presence of urogenital implants; N40.1 Benign prostatic hyperplasia with lower urinary tract symptoms; I25.10 Atherosclerotic heart disease of native coronary artery without angina pectoris; Z20.822 Contact with and (suspected) exposure to COVID-19; Z87.19 Personal history of other diseases of the digestive system; Z87.440 Personal history of urinary (tract) infections; Z85.528 Personal history of other malignant neoplasm of kidney; Z79.2 Long term (current) use of antibiotics; Z79.1 Long term (current) use of non-steroidal anti-inflammatories (NSAID); Z91.02 Food additives allergy status; Z85.46 Personal history of malignant neoplasm of prostate; Z90.49 Acquired absence of other specified parts of digestive tract; Z90.89 Acquired absence of other organs; Z98.890 Other specified postprocedural states; Z79.899 Other long term (current) drug therapy; T36.8X5A Adverse effect of other systemic antibiotics, initial encounter; W06.XXXA Fall from bed, initial encounter; R33.8 Other retention of urine; Y92.003 Bedroom of unspecified non-institutional (private) residence as the place of occurrence of the external cause
CPT/HCPCS: 36415; 70450; 80048; 80053; 80305; 80307; 81001; 82550; 82570; 82607; 83605 ×2; 83735 ×2; 83930; 83935; 84100; 84300; 84439; 84443; 84484 ×2; 85025 ×2; 85610; 93005; 96365; 96366; 96367; 99285; A9270; J2185; J2543; J3475; J3490; J7050; J7120 ×2; U0002; 93010; 97162-GP; 97530-GP; 99284; J2405; J7620-GY

== ENCOUNTER 2022-05-17 09:51 | Emergency (ER) | payer MEDICARE, OTHER ==
[2022-05-17 10:09] VITALS: BP 99/47; PULSE 98
[2022-05-17] MEDS ORDERED: Acetaminophen/HYDROcodone 325-5 MG Tab PO ONE (10:44)
== END 2022-05-17 12:49 | disposition home or self-care (01) ==
LOC: MW.ED 09:51
DX: S22.32XA Fracture of one rib, left side, initial encounter for closed fracture (principal); Z88.1 Allergy status to other antibiotic agents; Z91.018 Allergy to other foods; Z79.899 Other long term (current) drug therapy; W01.198A Fall on same level from slipping, tripping and stumbling with subsequent striking against other object, initial encounter; Y92.002 Bathroom of unspecified non-institutional (private) residence as the place of occurrence of the external cause
CPT/HCPCS: 71101; 99283; A9270

== ENCOUNTER 2022-06-10 16:11 | Emergency (ER) | payer MEDICARE, OTHER, MEDICAID ==
[2022-06-10 16:53] VITALS: BP 140/57; PULSE 89
== END 2022-06-10 18:53 | disposition home or self-care (01) ==
LOC: MW.ED 16:11
DX: R31.9 Hematuria, unspecified (principal); Z91.018 Allergy to other foods; Z88.1 Allergy status to other antibiotic agents
CPT/HCPCS: 99283

== ENCOUNTER 2022-06-21 21:12 | Emergency (ER) | payer MEDICARE, MEDICAID ==
[2022-06-21 23:04] LABS: CARBON DIOXIDE,CO2 31.5 mmol/L (21.0-32.0); POTASSIUM,K 4.7 mmol/L (3.5-5.1)
[2022-06-21] MEDS ORDERED: cefTRIAXone 1 GM in Sodium Chloride 0.9% 50 ML IV ONE (23:11)
[2022-06-21] MEDS ORDERED: Cephalexin 500 MG Cap PO ONE (23:31)
[2022-06-21 23:43] VITALS: BP 162/60; PULSE 87
== END 2022-06-21 23:51 | disposition home or self-care (01) ==
LOC: MW.ED 21:12
DX: N39.0 Urinary tract infection, site not specified (principal); Z91.018 Allergy to other foods; Z88.8 Allergy status to other drugs, medicaments and biological substances; Z79.899 Other long term (current) drug therapy
CPT/HCPCS: 36415; 51702; 80053; 81001; 85025; 87086; 87088; 87186; 99284-25; A9270-GY

== ENCOUNTER 2023-01-19 19:30 | Emergency (ER) | payer MEDICARE, OTHER, MEDICAID ==
[2023-01-19] MEDS ORDERED: Lidocaine 2% Viscous Solution 15 ML UD PO ONE (19:51)
[2023-01-19 20:01] VITALS: PULSE 58
[2023-01-19 20:57] VITALS: BP 130/59
== END 2023-01-19 20:55 | disposition home or self-care (01) ==
LOC: MW.ED 19:30
DX: T83.091A Other mechanical complication of indwelling urethral catheter, initial encounter (principal); Z88.1 Allergy status to other antibiotic agents; Z91.018 Allergy to other foods
CPT/HCPCS: 99283; A9270

== ENCOUNTER 2023-01-20 02:48 | Emergency (ER) | payer MEDICARE, OTHER, MEDICAID ==
[2023-01-20 04:56] LABS: BASOPHILS ABSOLUTE AUTO 0.04 K/uL (0.00-0.20); BASOPHILS PERCENT AUTO 0.3 % (0.0-1.0); EOSINOPHILS ABSOLUTE AUTO 0.06 K/uL (0.00-0.45); EOSINOPHILS PERCENT AUTO 0.5 % (0.0-6.0); HEMATOCRIT 42.5 % (42.0-52.0); HEMOGLOBIN 14.7 g/dL (14.0-18.0); IMMATURE GRAN ABSOLUTE AUTO 0.03 K/uL (0.00-0.05); IMMATURE GRAN PERCENT AUTO 0.2 % (0.0-0.4); LYMPHOCYTES PERCENT AUTO 17.3 % (24.0-44.0); MEAN CORPUSCULAR HEMOGLOBIN 30.8 pg (28.0-32.0); MEAN CORPUSCULAR HGB CONC 34.6 g/dL (32.0-36.0); MEAN CORPUSCULAR VOLUME 88.9 fL (83.0-99.0); MEAN PLATELET VOLUME 8.6 fL (9.4-12.4); MONOCYTES ABSOLUTE AUTO 0.88 K/uL (0.00-0.80); MONOCYTES PERCENT AUTO 6.9 % (0.0-8.0); NEUTROPHILS ABSOLUTE AUTO 9.53 K/uL (1.80-7.70); NEUTROPHILS PERCENT AUTO 74.8 % (41.0-71.0); PLATELET COUNT,PLT 265 K/uL (150-400); RED BLOOD CELL COUNT 4.78 M/uL (4.52-5.90); WHITE BLOOD CELL COUNT,WBC 12.74 K/uL (3.9-11.3)
[2023-01-20 05:12] LABS: CALCIUM 9.4 mg/dL (8.5-10.1); CARBON DIOXIDE,CO2 30.9 mmol/L (21.0-32.0); CREATININE 0.8 mg/dL (0.8-1.3); EST CRCL DRUG DOSING (CG) 67.47 mL/min
[2023-01-20 05:26] LABS: APPEARANCE,URINE CLOUDY; BILIRUBIN,URINE NEGATIVE (NEGATIVE); COLOR,URINE YELLOW; GLUCOSE,URINE NEGATIVE (NEGATIVE); KETONES,URINE NEGATIVE (NEGATIVE); LEUKOCYTE ESTERASE,URINE MODERATE (NEGATIVE); NITRITE,URINE POSITIVE (NEGATIVE); OCCULT BLOOD,URINE LARGE (NEGATIVE); PH,URINE 8.5 (5.0-8.0); PROTEIN,URINE 100 mg/dL (NEGATIVE); UROBILINOGEN,URINE 0.2 EU/dL (<2.0)
[2023-01-20] MEDS ORDERED: Iopamidol 755 MG/ML 500 ML Multipack Bottle IVPUSH STA (05:26)
[2023-01-20 05:35] LABS: BACTERIA,URINE 4+ (NEGATIVE); EPITHELIAL CELLS,URINE FEW (NONE-FEW); RBC,URINE TOO NUMEROUS TO CT (0-2/HPF); WBC,URINE TO NUMEROUS TO COUNT (0-5/HPF)
[2023-01-20] MEDS ORDERED: Cephalexin 500 MG Cap PO ONE (05:40)
[2023-01-20 06:06] LABS: CORONAVIRUS COVID-19 NAA NEGATIVE (NEGATIVE); INFLUENZA A NAA NEGATIVE (NEGATIVE); INFLUENZA B NAA NEGATIVE (NEGATIVE); RESPIRATORY SYNCYTIAL VIR NAA NEGATIVE (NEGATIVE)
[2023-01-20 10:32] VITALS: BP 130/75; PULSE 75
== END 2023-01-20 10:39 | disposition home or self-care (01) ==
LOC: MW.ED 02:48
DX: T83.091A Other mechanical complication of indwelling urethral catheter, initial encounter (principal); Z88.1 Allergy status to other antibiotic agents; Z91.018 Allergy to other foods; Z20.822 Contact with and (suspected) exposure to COVID-19
CPT/HCPCS: 0241U; 36415; 51702; 51798; 74177; 80048; 81001; 85025; 99284; A9270

== ENCOUNTER 2023-01-30 14:08 | Emergency (ER) | payer MEDICARE, OTHER, MEDICAID ==
[2023-01-30] MEDS ORDERED: Sodium Chloride 0.9% 2.5 ML Syringe FLUSH PRN (14:30)
[2023-01-30] MEDS ORDERED: Sodium Chloride 0.9% 10 ML Syringe FLUSH PRN (14:30)
[2023-01-30] MEDS ORDERED: Ondansetron 4 MG/2 ML SDV IVPUSH STA (14:31)
[2023-01-30] MEDS ORDERED: Morphine 4 MG/ML Syringe IVPUSH STA (14:31)
[2023-01-30 14:46] LABS: BASOPHILS ABSOLUTE AUTO 0.05 K/uL (0.00-0.20); BASOPHILS PERCENT AUTO 0.5 % (0.0-1.0); EOSINOPHILS ABSOLUTE AUTO 0.03 K/uL (0.00-0.45); EOSINOPHILS PERCENT AUTO 0.3 % (0.0-6.0); HEMOGLOBIN 15.4 g/dL (14.0-18.0); IMMATURE GRAN ABSOLUTE AUTO 0.03 K/uL (0.00-0.05); IMMATURE GRAN PERCENT AUTO 0.3 % (0.0-0.4); LYMPHOCYTES ABSOLUTE AUTO 1.92 K/uL (1.00-4.80); LYMPHOCYTES PERCENT AUTO 18.7 % (24.0-44.0); MEAN CORPUSCULAR HEMOGLOBIN 30.8 pg (28.0-32.0); MEAN PLATELET VOLUME 8.3 fL (9.4-12.4); MONOCYTES ABSOLUTE AUTO 0.65 K/uL (0.00-0.80); MONOCYTES PERCENT AUTO 6.3 % (0.0-8.0); NEUTROPHILS ABSOLUTE AUTO 7.57 K/uL (1.80-7.70); NEUTROPHILS PERCENT AUTO 73.9 % (41.0-71.0); PLATELET COUNT,PLT 311 K/uL (150-400); WHITE BLOOD CELL COUNT,WBC 10.25 K/uL (3.9-11.3)
[2023-01-30 15:15] LABS: BILIRUBIN,URINE NEGATIVE (NEGATIVE); COLOR,URINE YELLOW; GLUCOSE,URINE NEGATIVE (NEGATIVE); KETONES,URINE NEGATIVE (NEGATIVE); LEUKOCYTE ESTERASE,URINE LARGE (NEGATIVE); NITRITE,URINE POSITIVE (NEGATIVE); OCCULT BLOOD,URINE MODERATE (NEGATIVE); PH,URINE 8.5 (5.0-8.0); PROTEIN,URINE 100 mg/dL (NEGATIVE); UROBILINOGEN,URINE 0.2 EU/dL (<2.0)
[2023-01-30 15:20] LABS: CALCIUM 9.4 mg/dL (8.5-10.1); CARBON DIOXIDE,CO2 28.6 mmol/L (21.0-32.0); CREATININE 0.9 mg/dL (0.8-1.3); EST CRCL DRUG DOSING (CG) 48.72 mL/min
[2023-01-30 15:22] LABS: APPEARANCE,URINE CLOUDY
[2023-01-30 15:31] LABS: BACTERIA,URINE 4+ (NEGATIVE); EPITHELIAL CELLS,URINE NOT SEEN (NONE-FEW); WBC,URINE TO NUMEROUS TO COUNT (0-5/HPF)
[2023-01-30] MEDS ORDERED: Sulfamethoxazole/Trimethoprim 800-160 MG Tab PO STA (15:46)
[2023-01-30 17:39] VITALS: BP 125/60; PULSE 62
== END 2023-01-30 16:26 | disposition home or self-care (01) ==
LOC: MW.ED 14:08
DX: T83.511A Infection and inflammatory reaction due to indwelling urethral catheter, initial encounter (principal); M62.461 Contracture of muscle, right lower leg; M62.462 Contracture of muscle, left lower leg; Z02.71 Encounter for disability determination; Z91.118 Patient's noncompliance with dietary regimen for other reason; Z88.1 Allergy status to other antibiotic agents; Z79.899 Other long term (current) drug therapy
CPT/HCPCS: 36415; 51702; 80048; 81001; 85025; 87086; 96374; 96375; 99283; A9270; J2270; J2405; J3490; 87088; 87186; 99284

== ENCOUNTER 2023-02-27 14:53 | Emergency (ER) | payer MEDICARE, OTHER, MEDICAID ==
[2023-02-27 15:43] LABS: APPEARANCE,URINE CLOUDY; BILIRUBIN,URINE NEGATIVE (NEGATIVE); GLUCOSE,URINE NEGATIVE (NEGATIVE); KETONES,URINE TRACE mg/dL (NEGATIVE); LEUKOCYTE ESTERASE,URINE MODERATE (NEGATIVE); NITRITE,URINE NEGATIVE (NEGATIVE); OCCULT BLOOD,URINE LARGE (NEGATIVE); PROTEIN,URINE 30 mg/dL (NEGATIVE); UROBILINOGEN,URINE 0.2 EU/dL (<2.0)
[2023-02-27 16:06] LABS: COLOR,URINE AMBER; RBC,URINE TOO NUMEROUS TO CT (0-2/HPF)
[2023-02-27 16:07] LABS: AMORPHOUS SEDIMENT,URINE MODERATE (NEGATIVE); BACTERIA,URINE FEW (NEGATIVE); EPITHELIAL CELLS,URINE OCCASIONAL (NONE-FEW)
[2023-02-27 17:01] VITALS: BP 129/51; PULSE 59
== END 2023-02-27 16:59 | disposition home or self-care (01) ==
LOC: MW.ED 14:53
DX: T83.511A Infection and inflammatory reaction due to indwelling urethral catheter, initial encounter (principal); M62.461 Contracture of muscle, right lower leg; M62.462 Contracture of muscle, left lower leg; R54 Age-related physical debility; Z79.899 Other long term (current) drug therapy
CPT/HCPCS: 51702; 81001; 87086; 87088; 87186; 99283